=== PATIENT | male | born 1990 | race Hispanic/Latino ===

== ENCOUNTER 2018-04-15 12:11 | Emergency (ER) | payer BC, OTHER ==
--- NOTE | 2018-04-15 13:39 | RAD REPORT ---
EXAM DESCRIPTION: RAD - Elbow Left 3 View - 04/15/2018 1:01 pm CLINICAL HISTORY: Left elbow pain status post trauma FINDINGS The lateral view is suboptimal as the elbow is not flexed to 90 degrees. No gross fracture or dislocation is seen. A laceration involves the soft tissues
--- NOTE | 2018-04-15 13:40 | RAD REPORT ---
EXAM DESCRIPTION: RAD - Humerus Left - 04/15/2018 1:01 pm CLINICAL HISTORY: Left arm pain status post fall FINDINGS: No fracture is seen. A laceration involves the distal soft tissues are
[2018-04-15] MEDS ORDERED: LIDOCAINE 1% MPF 5 ML VIAL ONE (13:45)
[2018-04-15] MEDS ORDERED: HYDROCODONE/APAP 10/325 TAB ONE (13:45)
[2018-04-15] MEDS ORDERED: BUPIVACAINE 0.5% PF 10 ML VIAL ONE (13:45)
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
== END 2018-04-15 16:04 | disposition home or self-care (01) ==
LOC: ER 12:11
PROC: 0JQF0ZZ Repair Left Upper Arm Subcutaneous Tissue and Fascia, Open Approach (ICD-10-PCS; principal; 2018-04-15)
DX: S41.112A Laceration without foreign body of left upper arm, initial encounter (principal); W17.89XA Other fall from one level to another, initial encounter; Y93.01 Activity, walking, marching and hiking; Y92.85 Railroad track as the place of occurrence of the external cause; Z87.891 Personal history of nicotine dependence
CPT/HCPCS: 99284

== ENCOUNTER → 2023-11-14 | Emergency (ER) | payer BC, OTHER ==
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
[2023-11-14 10:01] VITALS: BP 134/78; O2SAT 99
== END ==
LOC: ER 09:04
DX: T21.61XA Corrosion of second degree of chest wall, initial encounter (principal)

== ENCOUNTER 2024-04-08 10:13 | Day surgery (SDC) | payer BC ==
[2024-04-05 16:51] LABS: Anion Gap 9.8 mEq/L (5.0-15.0); Potassium 3.8 mEq/L (3.5-5.1)
--- NOTE | 2024-04-06 12:44 | EKG ---
Test Date: 2024-04-05 Test Time: 16:08:44 Public Weigher: RONNELL MEASUREMENT RESULTS: Intervals: Rate: 79 ID: [id number] QRSD: 88 QT: 352 QTc: 403 [place]: P: 51 ID: [id number] QRS: 99 T: 49 INTERPRETIVE STATEMENTS: Normal sinus rhythm Rightward axis Borderline ECG No previous ECG available for comparison Electronically Signed On 04-06-24 12:41:42 CDT by Maurice Tian
[2024-04-08] MEDS: Ringers Lactate 1,000 ML IV ONE ×2 (10:30→16:55)
[2024-04-08] MEDS ORDERED: BACITRACIN OINTMENT 14 GM TUBE TOP ONE (13:32)
[2024-04-08] MEDS ORDERED: MIDAZOLAM HCL 2 MG/2 ML INJ ONE (13:56)
[2024-04-08] MEDS ORDERED: FENTANYL CITR 100 MCG/2 ML ONE (13:56)
[2024-04-08] MEDS ORDERED: ROCURONIUM 50 MG/5 ML VIAL IV ONE (13:56)
[2024-04-08] MEDS ORDERED: propofoL 200 MG/20 ML VIAL IV ONE ×2 (13:56→15:59)
[2024-04-08] MEDS ORDERED: LIDOCAINE 1% MPF 5 ML VIAL ONE (13:56)
[2024-04-08] MEDS: CEFAZOLIN SODIUM 1 GM/VIAL ONE (14:10)
[2024-04-08] MEDS ORDERED: SUGAMMADEX SODIUM 200 MG/2 ML VIAL IV ONE (14:21)
[2024-04-08] MEDS ORDERED: ONDANSETRON 4 MG/2 ML VIAL ONE (14:37)
[2024-04-08] MEDS: LIDOCAINE HCL/EPINEPHRINE 20 ML MDV ONE (15:10)
[2024-04-08] MEDS ORDERED: DEXMEDETOMIDINE HCL 200 MCG/2 ML VIAL ONE (16:55)
[2024-04-08] MEDS: MEPERIDINE HCL 25 MG/ML SYR ONE (17:29)
[2024-04-08 18:26] VITALS: BP 135/75; TEMP 97.3; O2SAT 93
[2024-04-08] MEDS: HYDROCODONE/APAP 7.5/325 MG TAB ONE (18:37)
--- NOTE | 2024-04-12 19:33 | OP ---
Date of Procedure: 04/08/2024 Surgeon: REBA NAVARRO Preoperative Diagnoses: 1.Chronic obstructive sleep apnea. 2.Chronic maxillary sinusitis. 3.Deviated nasal septum. 4.Bilateral nasal valve collapse. 5.Hypertrophy of nasal turbinates. Postoperative Diagnoses: 1.Chronic obstructive sleep apnea. 2.Chronic maxillary sinusitis. 3.Deviated nasal septum. 4.Bilateral nasal valve collapse. 5.Hypertrophy of nasal turbinates. Procedures: 1.Drug-induced sleep endoscopy. 2.Bilateral maxillary balloon sinuplasty. 3.Bilateral lavage of maxillary sinuses. 4.Septoplasty. 5.Bilateral submucosal Coblation of inferior turbinates. 6.Insertion of bilateral Latera implants. Anesthesia: General endotracheal anesthesia was administered. I also infiltrated approximately 12 m L of 1% lidocaine with 1:100,000 epinephrine into bilateral inferior turbinate mucosa and axilla of b ilateral middle turbinates and uncinate processes. Estimated Blood Loss: Approximately 25 to 30 mL. Specimens: None. Findings: Bilateral nasal obstruction secondary to deviated nasal septum, internal nasal valve colla pse, inferior turbinate hypertrophy. Predominant anterior/posterior velopharyngeal closure with no e vidence of concentric collapse and minimal bilateral lateral wall collapse less than 10%, bilateral m axillary sinus effusion. Complications: None. Disposition: Stable. The patient tolerated the procedure well. Indication For Procedure: The patient is a pleasant 34-year-old male with chronic bilateral nasal ob struction and chronic obstructive sleep apnea. He was recently prescribed a full-face CPAP mask and has tried different masks and has tried to wear the mask up to 6 hours nightly, but he has moderate c laustrophobia whereby he is unable to keep the mask on more than 6 hours nightly and he is still waki ng up significantly fatigued. He believes he is pulling the mask off and not realizing that he is do ing it. He does have history of some insomnia. No evidence of nasal trauma. Upon examination, the patient had significant bilateral nasal obstruction and a Torres type 2/3 palate. The patient also had bilateral maxillary sinus effusion. CT scan demonstrated bilateral nasal obstruction secondary to nasal valve collapse, inferior turbinate hypertrophy, and deviated septum. He also had mucosal th ickening in bilateral maxillary sinuses greater than 3 mm and a redundant soft palate. These were in dications to bring the patient to operative suite for the above-mentioned procedures. He understood, all questions were answered. Risks versus benefits and complications were explained in detail and a consent form was signed which was placed in the chart. Description Of Procedure: The patient was transferred from the preoperative holding area to the oper ative suite by Department of Anesthesia, placed on the operating room table supine, sedated, intubate d in normal fashion. Approximately 8 mL of 1% lidocaine with 1:100,000 epinephrine was used to infil trate bilateral nasal septal mucosa and inferior turbinate mucosa and Afrin-soaked nasal pledgets wer e introduced bilaterally into the nasal cavities. The patient was sterilely prepped and draped. The pledgets were removed and I inserted a 0-degree rigid nasal endoscope into bilateral nasal caviti es. I injected an additional 4 mL of 1% lidocaine with 1:100,000 epinephrine, 2 mL on each side, whi ch included the axilla of bilateral middle turbinate mucosa and uncinate processes. Our attention wa s placed to the left side, in which a ball probe was inserted into the natural ostium of the left max illary sinus. The Acclarent balloon was then introduced into the left maxillary sinus after confirmi ng with the lighted guidewire at the canine fossa. I then inserted the balloon and inflated it to 12 mmHg and deflated it and then I repeated 12 mmHg to inflation and then deflated the balloon. I then retracted the lighted guidewire and the balloon and then lavaged the left maxillary sinus with 120 m L of sterile saline and then I suctioned the residual saline and effusion with the suction device rut t was connected to the balloon. Next, I turned my attention to the right maxillary sinus. I was sanchez ble to insert the balloon on the side due to significant deviation of the septum. Thus, my attention was placed to the septum on which modified [place] incision was made into the left nasal septal muco sa and the mucosa was elevated with a Demorest elevator and then a crossover incision was made with a #1 5 blade scalpel and the right-sided nasal septal mucosa was elevated with a Demorest elevator. Once I w as able to isolate the cartilage and bone, I removed the obstructive cartilage and bone with a septal knife and Neto forceps. My attention was then placed to the right maxillary sinus. The natura l opening was located and a ball probe was inserted and then I inserted the Acclarent balloon into th e right maxillary sinus after confirming the lighted guidewire at the right canine fossa. I inflated twice to 12 mmHg and then deflated the balloon and retracted it and then I lavaged the right maxilla ry sinus with approximately 120 mL of sterile saline and the residual fluid effusion was removed with the suction device connected to the balloon. My attention was then placed to bilateral inferior tur binates, whereby submucosal incisions were made with the Coblation wand and I started on the left inf erior turbinate, whereby the incision was made with the Coblation and then I created submucosal pocke t and performed left inferior turbinate Coblation submucosal ablation with the device. I then incise d the right inferior turbinate mucosa with the Coblation wand and created a submucous pocket and then I performed submucosal Coblation of the right inferior turbinate. Next, my attention was placed to the nasal valves. A surgical pen was used to magdy the junction of t he upper lateral cartilage and the nasal bone/maxilla. On the right side of the patient, a line was drawn starting slightly medial to the medial canthus to the upper 1/3 of the alar rim. The line was marked at 6 mm cranial to the bone/cartilage junction along the line as the most distal placement of the implant. Creation of the lateral cartilage support was performed as follows-a very small amount of 1% lidocaine with epinephrine was infused along the outline track of the implantation. The polyme r implant was loaded into a sterile delivery device which included a 16-gauge cannula. The nasal muc mirian was incised immediately cranial to the alar rim and the cannula was advanced through the incision along the line drawn. Using the cannula, a dissection plane was created over the upper lateral cart ilage. At the junction with the nasal aspect of the maxillary bone, the cannula was brought superfic ial to the bone. Using the 16-gauge cannula, dissection plane was created above the periosteum on th e superficial aspect of maxillary bone. The cannula tip was advanced to the target, marked 6 mm cran ial to the bony cartilaginous junction using palpation of the surface of the skin. Once the destinat ion was obtained and the dissection was completed, the skin on the nose was normalized and the cannul a was inspected to determine if its tip was at a sufficient depth. Once it was determined that the c annula tip was at the sufficient depth, the polymer implant was delivered and the cannula withdrawn. Thus, the lateral cartilage was supported. The anterior limb was inspected to determine if suture c losure was necessary, but none was needed as there was no bleeding. The same procedure was performed on the left side of the patient by incising immediately cranial to the alar rim and the cannula was advanced through the incision along the line drawn. Using the cannula, dissection plane was created over the upper lateral cartilage. At the junction with the nasal aspect of the maxillary bone, the c annula was brought superficial to the bone. The dissection plane was created above the periosteum on the superficial aspect of maxillary bone. The cannula tip was advanced to the target marked 6 mm cr anial to the bony cartilaginous junction using palpation of surface of the skin. Once the destinatio n was obtained, the dissection was completed. The skin on the nose was normalized and the cannula wa s inspected to determine if its tip was at a sufficient depth. The polymer implant was then delivere d and the cannula withdrawn. No suture closure was necessary. I then reapproximated the nasal septal mucosa with 4-0 plain gut suture in a continuous running fashi on in a box-like fashion to prevent septal hematoma. This was done in the mid septal region and thei r reapproximation of the mucosal edges was done at the anterior septum. Next, my attention was placed to the drug-induced sleep endoscopy. As the patient was being awakened , a flexible nasopharyngoscope was advanced back to the level of nasopharynx and the airway was visua lized. As the patient was waking up, there was predominant anterior/posterior closure with minimal l ess than 10% lateral wall closure and no evidence of concentric closure. The scope was removed. The patient tolerated the procedure well. Yun splints coated with antibiotic ointment were inserted i nto bilateral nasal cavities and secured to the caudal septum with a 2-0 Prolene suture. A mustache dressing was placed. The patient tolerated the procedure well. He will be discharged home on an oral antibiotic analgesic medication and will follow up in 1 week or so heather if needed. KATIUSKA/DAYANA Voice ID: [id number] Report ID: [id number]
== END 2024-04-08 19:27 | disposition home or self-care (01) ==
LOC: OR 10:13
PROVIDERS: ATTEND Otolaryngology Facial Plastic Surgery
PROC: 09QR4ZZ Repair Left Maxillary Sinus, Percutaneous Endoscopic Approach (ICD-10-PCS; 2024-04-08)
PROC: 09QQ4ZZ Repair Right Maxillary Sinus, Percutaneous Endoscopic Approach (ICD-10-PCS; 2024-04-08)
PROC: 09U Ear, Nose, Sinus, Supplement (ICD-10-PCS; 2024-04-08)
PROC: 0CJY8ZZ Inspection of Mouth and Throat, Via Natural or Artificial Opening Endoscopic (ICD-10-PCS; principal; 2024-04-08 11:00)
PROC: 09SM4ZZ Reposition Nasal Septum, Percutaneous Endoscopic Approach (ICD-10-PCS; 2024-04-08 11:00)
DX: G47.33 Obstructive sleep apnea (adult) (pediatric) (principal); J32.0 Chronic maxillary sinusitis; J34.2 Deviated nasal septum; J34.89 Other specified disorders of nose and nasal sinuses
CPT/HCPCS: 42975; 30520; 31295; 30468; 93005; 80048; 36415; J2704 ×2; J2001; J2250; J3010; J2175; J2405; J7120 ×2; J0690